=== PATIENT | male | born 1930 | race Caucasian/White ===

== ENCOUNTER 2017-05-25 11:36 | Outpatient (CLI) | payer MEDICARE, BC ==
--- NOTE | 2017-05-25 12:10 | RAD ---
RIGHT KNEE FOUR VIEWS: History: 86-year-old male with history of bilateral knee pain for several months. FINDINGS: Exam performed with weight bearing. 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 No fracture or dislocation. 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 No fracture or dislocation. POS: [facility]
--- NOTE | 2017-05-25 12:13 | RAD ---
LEFT KNEE 4 VIEWS: Date: 05/25/17 HISTORY: 86-year-old male with history of left knee pain. Exam is performed with weightbearing. FINDINGS: Significant tricompartment arthrosis changes are noted with marked narrowing of the medial compartmen t. No acute fracture or dislocation. 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 No acute fracture or d islocation. POS: [facility]
== END 2017-05-25 11:37 | disposition home or self-care (01) ==
LOC: SCSRAD 11:36
PROVIDERS: ATTEND Family Medicine
DX: M25.561 Pain in right knee (principal); M17.0 Bilateral primary osteoarthritis of knee